=== PATIENT | female | born 1960 | race Asian ===

== ENCOUNTER → 2016-09-29 | Outpatient (CLI) | payer OTHER | LOC: FIMAGING 15:04 | PROVIDERS: ATTEND Orthopaedic Surgery | DX: M75.81 Other shoulder lesions, right shoulder (principal); M75.21 Bicipital tendinitis, right shoulder; M19.011 Primary osteoarthritis, right shoulder ==

== ENCOUNTER 2017-01-31 05:41 | Day surgery (SDC) | payer OTHER ==
[2017-01-30 08:51] LABS: ANION GAP 11 mEq/L (8-16); CALCIUM 9.4 mg/dL (8.5-10.4); CARBON DIOXIDE 24 mEq/l (22-31); CHLORIDE 106 mEq/L (97-110); CREATININE 0.8 mg/dL (0.6-1.0); GLOMERULAR FILTRATION RATE > 60; GLUCOSE 89 mg/dL (70-100); POTASSIUM 4.1 mEq/L (3.5-5.2); SODIUM 141 mEq/L (134-144)
--- NOTE | 2017-01-30 20:57 | PDANEPAE ---
ANE History of Present Illness 56 year old female with R shoulder injury. ANE Past Medical History - Cardiovascular History Hx Hypertension: Yes Hx Arrhythmias: No Hx Chest Pain: No Hx Coronary Artery / Peripheral Vascular Disease: No Hx CHF / Valvular Disease: No Hx Palpitations: No - Pulmonary History Hx COPD: No Hx Asthma/Reactive Airway Disease: No Hx Recent Upper Respiratory Infection: No Hx Oxygen in Use at Home: No Hx Sleep Apnea: No Sleep Apnea Screening Result - Last Documented: Negative - Neurologic History Hx Cerebrovascular Accident: No Hx Seizures: No Hx Dementia: No - Endocrine History Hx Diabetes: Yes Endocrine History Comment: well controlled - Renal History Hx Renal Disorders: No - Liver History Hx Hepatic Disorders: No - Neurological & Psychiatric Hx Hx Neurological and Psychiatric Disorders: No - Cancer History Hx Cancer: Yes Cancer History Comment: cervical tx w/radiation 2000 - Congenital Disorder History Hx Congenital Disorders: No - GI History Hx Gastrointestinal Disorders: Yes Gastrointestinal History Comment: 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 - Other Health History Other Health History: R biceps tendon impingement/R torn rotator cuff - Chronic Pain History Chronic Pain: Yes (R shoulder) - Surgical History Prior Surgeries: hysterectomy (except ovaries)';. L ft sx -2010; ANE Review of Systems Review of Systems: No URI/fever x2 weeks. - Exercise capacity METS (RN): 4 METS - Systems Constitutional: Reports: no symptoms Cardiac: Reports: no symptoms Respiratory: Reports: no symptoms Gastrointestinal: Reports: no symptoms, rectal pain (rectal fissure secondary to radiation) ANE Patient History - Allergies Allergies/Adverse Reactions: aspirin Allergy (Verified 01/29/17 16:42) Other-Enter Comments niacin Allergy (Verified 01/29/17 16:42) Other-Enter Comments Sulfa (Sulfonamide Antibiotics) Allergy (Verified 01/29/17 16:42) Anaphylaxis - Home Medications Home medications: home medication list seen and reviewed Home Medications: Coq-10 01/29/17 [Last Taken Unknown] Fish Oil 1,000 mg Capsule 01/29/17 [Last Taken Unknown] Flonase Nasal [place] 01/29/17 [Last Taken Unknown] Lisinopril 01/29/17 [Last Taken Unknown] Metformin HCl 01/29/17 [Last Taken Unknown] Osphena 01/29/17 [Last Taken Unknown] - NPO status NPO Status: no food or drink >8 hours - Anes Hx Hx Anesthesia Complications (with details): hypoxia during colonoscopy, believed to be due to Fentanyl/Versed - Smoking Hx Smoking Status: Never smoked Marijuana use: No - Alcohol Use Alcohol Use: None - Family Anes Hx Family Anes Hx: none ANE Labs/Vital Signs - Labs Result Diagrams: 01/30/17 08:18 - Vital Signs Vital Signs: reviewed preoperatively; see RN documention for details Height: 153.67 cm Weight: 68.039 kg ANE Physical Exam - Airway Neck exam: FROM Mallampati Score: Class 2 - Pulmonary Pulmonary: clear to auscultation - Cardiovascular Cardiovascular: regular rate and rhythym - ASA Status ASA Status: II ANE Anesthesia Plan Anesthesia Plan: general endotracheal anesthesia Regional Anesthesia: interscalene BP NB Total IV Anesthesia: No
[2017-01-31] MEDS ORDERED: LR 1,000 ML IV ONE (06:12)
[2017-01-31] MEDS ORDERED: LIDOCAINE 1% 2 ML INJ ID PRN (06:12)
[2017-01-31] MEDS ORDERED: BUPIVACAINE 0.5% 30 ML SDV ONE (06:56)
[2017-01-31] MEDS ORDERED: BUPIVACAINE/EPI 0.5% 30 ML SDV ONE (06:56)
[2017-01-31] MEDS ORDERED: BACITRACIN 50,000 UNITS/10 ML SYR IRR ONE (06:57)
[2017-01-31] MEDS ORDERED: POLYMYXIN B SULFATE 500,000 UNIT/10 ML SYR IRR ONE (06:57)
[2017-01-31] MEDS ORDERED: SCOPOLAMINE HYDROBROMIDE 1 MG/3 DAYS PATCH TD ONE (07:06)
[2017-01-31] MEDS ORDERED: MIDAZOLAM 2 MG/2 ML VIAL IVP ONE (07:07)
--- NOTE | 2017-01-31 07:12 | PDHPUP ---
History & Physical Update H&P update statement: This history and physical update is based on an assessment of the patient which was completed after admission or registration (within 24 hours), but prior to the surgery/procedure. H&P update: H&P reviewed & patient examined, no change in patient's condition since H&P completed
[2017-01-31] MEDS ORDERED: PROPOFOL/EMULSION 500 MG/50 ML BOTTLE IV ONE ×2 (07:15→08:44)
[2017-01-31] MEDS ORDERED: LIDOCAINE 2% 5 ML SDV ONE (07:16)
[2017-01-31] MEDS ORDERED: DEXAMETHASONE 4 MG/ML VIAL ONE ×2 (07:16)
[2017-01-31] MEDS ORDERED: ONDANSETRON 4 MG/2 ML VIAL ONE (07:16)
[2017-01-31] MEDS ORDERED: clonIDINE 1 MG/10 ML VIAL EP ONE (07:20)
[2017-01-31] MEDS ORDERED: epHEDrine SULFATE 10 MG/ML SYR ONE (09:26)
[2017-01-31] MEDS ORDERED: PROMETHAZINE HCL 25 MG/ML INJ IVP PRN (09:39)
[2017-01-31] MEDS ORDERED: NALOXONE HCL 0.4 MG/ML INJ IVP PRN (09:39)
[2017-01-31] MEDS ORDERED: fentaNYL 100 MCG/2 ML INJ IVP PRN (09:39)
[2017-01-31] MEDS ORDERED: ACETAMINOPHEN 500 MG TAB PO PRN (09:39)
[2017-01-31] MEDS ORDERED: OXYCODONE/APAP 5/325 TAB PO PRN (09:39)
[2017-01-31] MEDS ORDERED: ALBUTEROL 3 ML DEYVIAL IH PRN (09:39)
--- NOTE | 2017-01-31 10:09 | POSTOPPROG ---
Post Op Note Date of Operation: 01/31/17 Surgeon: Val Feliz [employer] Lieutenant: Cristy Rowe PA-C Anesthesiologist: Dr. Shabazz Anesthesia: GET(General Endotracheal) Pre-op Diagnosis: shoulder impingement Post-op Diagnosis: shoulder impingement Indication: shoulder pain Procedure: right shoulder SAD, DCE, debridement, biceps tenodesis Inf/Abcess present in the surg proc area at time of surgery?: No EBL: Minimal Complications: none
--- NOTE | 2017-01-31 10:10 | SOAPPROG ---
SOAP Progress Note Assessment/Plan: Assessment/Plan: s/p right shoulder SAD, DCE, debridement, biceps tenodesis - stable and doing well - meds per anesthesia - sling; ok for gentle pendulums, no biceps ROM - f/u in 7-10 days, call with issues or concerns - home when PACU criteria met 01/31/17 10:08 Subjective: No pain, feels tired Objective: Vital Signs Temp Pulse Resp BP Pulse Ox 36.1 C 75 12 93/59 L 96 01/31/17 09:44 01/31/17 09:44 01/31/17 09:44 01/31/17 09:44 01/31/17 09:44 Laboratory Results 01/30/17 08:18 01/30/17 01/31/17 02/01/17 05:59 05:59 05:59 Intake Total 1000 Output Total 25 Balance 975 NAD, no distress waking from anesthesia EOMi, MAEx4 incisions CDI ICD10 Worksheet Patient Problems: Problems Problem Status Onset Shoulder pain Acute - ICD10 Problem Qualifiers (1) Shoulder pain Qualifiers: Chronicity: C Laterality: L
[2017-01-31 10:44] VITALS: PULSE 75
[2017-01-31 10:46] VITALS: RESP 18
--- NOTE | 2017-01-31 11:28 | POSTANESTH ---
Post Anesthetic Evaluation Cardiovascular Status: Normal, Stable Respiratory Status: Normal, Stable Level of Consciousness/Mental Status: Can Participate in Eval, Alert and Oriented Pain Control: Adequate, Prn Tx Ordered Nausea/Vomiting Control: Adequate, Prn Tx Ordered Complications Possibly Related to Anesthesia: None Noted (No pain in R shoulder , some tingling in hand.)
[2017-01-31 12:05] VITALS: BP 128/77; O2SAT 92
[2017-01-31 12:17] VITALS: TEMP 98.8
--- NOTE | 2017-01-31 18:37 | GOP ---
[f rep st] OPERATIVE REPORT DATE OF OPERATION: 01/31/2017 SURGEON: Val Feliz MD WINDOWS SECURITY ANALYST: Cristy Rowe PA-C ANESTHESIA: General with interscalene block. PREOPERATIVE DIAGNOSIS: 1. Partial-thickness rotator cuff tear. 2. Biceps tendinitis with superior labrum anterior and posterior tear. 3. Impingement syndrome. 4. Acromioclavicular arthritis, right shoulder. POSTOPERATIVE DIAGNOSIS: 1. Partial-thickness rotator cuff tear. 2. Biceps tendinitis with superior labrum anterior and posterior tear. 3. Impingement syndrome. 4. Acromioclavicular arthritis, right shoulder. PROCEDURE PERFORMED: 1. Arthroscopy. 2. Arthroscopic debridement of superior labrum anterior and posterior tear and partial-thickness ro tator cuff tear. 3. Subacromial decompression. 4. Distal clavicle excision. 5. Biceps tenodesis, right shoulder. FINDINGS: A diagnostic arthroscopy of the right shoulder was performed with the following findings. The patient had normal glenohumeral articular cartilage. There was no significant chondral damage . There was no chondromalacia. The labrum was inspected, and it was noted to be normal anteriorly, inferiorly, and posteriorly, but there was a large SLAP tear extending from the 10 o'clock to the 2 o'clock position. There was instability of the biceps anchor with severe damage of the biceps anch or. The biceps tendon was released for later tenodesis. The SLAP tear was debrided. The rotator c uff was then inspected, and the patient was noted to have a partial-thickness tear of the anterior f ibers of the supraspinatus. This extended from the rotator interval posteriorly for approximately a centimeter. This was less than 25% of the thickness of the rotator cuff. The articular surface of the partial thickness rotator cuff tear was debrided with the shaver. The remainder of the rotator cuff was intact, including the subscapularis. The scope was then placed in the subacromial space, and the patient had severe subacromial bursitis. The subacromial bursa was debrided. The rotator c uff was inspected from the bursal side and noted to be intact. The patient did have an anterolatera l spur on the undersurface of the acromion. Approximately 8 mm of the anterolateral acromion was re moved with a bur. This decompressed the subacromial space nicely. The patient also had a large spu r on the inferior aspect of the distal clavicle. The distal 1 cm of the clavicle was excised. Augustina rangel, the biceps tendon was retrieved from the bicipital groove, and a drill hole was placed at the b ase of the bicipital groove. The tendon was inserted and fixated with a 7 x 23 bioabsorbable tenode sis screw. Excellent fixation of the biceps tendon was obtained. ESTIMATED BLOOD LOSS: Minimal. DESCRIPTION OF PROCEDURE: The patient was taken to the operating room and placed in supine position on the operating table. Following induction of adequate general and interscalene anesthesia, she w as turned to the lateral decubitus position, and the shoulder and arm were prepped and draped in the usual sterile manner. The patient received 1 g of IV Ancef. The arthroscope was introduced throug h a posterior portal, and the instrumentation through an anterior portal. A diagnostic arthroscopy was performed with the above-noted findings. Our attention was turned first to the intraarticular p athology. The SLAP tear was debrided. The biceps tendon was released with the basket. Once this w as completed, the scope was placed in the subacromial space, and a lateral working portal was create d. The instruments were passed through the lateral portal at this point. The undersurface of the a cromion was cleared; then the bur was inserted, and a subacromial decompression was performed. The rasp was used to smooth the undersurface of the acromion. The instrumentation was then removed from the shoulder, and a 3 cm incision was made along the distal end of the clavicle. Incision was vale ied down through subcutaneous tissues to the AC joint. The fascia overlying the AC joint was split in a T-fashion and retracted, and the distal 1 cm of the clavicle was excised with a saw. The fasci a was then repaired using 0 Vicryl followed by 2-0 Vicryl in the subcutaneous tissue and 4-0 Vicryl in the skin. The portals were closed using 4-0 nylon. The patient was turned to the beach-chair po sition, and then a 4 cm incision was made along the bicipital groove. Incision was carried down thr ough the subcutaneous tissue to the deltoid. The deltoid was split in line with the incision and re tracted with a [place] retractor. The biceps tendon was located in the bicipital groove and retrieve d. It was prepared for tenodesis. A fiber loop was utilized. Once the tendon was prepared, a dril l hole was placed at the base of the bicipital groove and the tendon was inserted and fixated with a 7 x 23 [employer] Tenodesis screw. Excellent fixation was obtained. The incision was irrigated o ut and injected with 10 cc of 0.5% Marcaine with epinephrine. It was closed using 2-0 Vicryl follow ed by 4-0 Vicryl in a running subcuticular fashion. Steri-Strips and sterile dressings were applied . The patient tolerated the procedure well, and there were no complications. Estimated blood loss minimal. Final sponge, needle counts were correct. The patient was transported to the [facility] in good condition. /[id number]/MODL
== END 2017-01-31 11:56 | disposition home or self-care (01) ==
LOC: FSGY 05:41
PROVIDERS: ATTEND Orthopaedic Surgery
DX: M75.111 Incomplete rotator cuff tear or rupture of right shoulder, not specified as traumatic (principal); M75.21 Bicipital tendinitis, right shoulder; M75.41 Impingement syndrome of right shoulder; S43.431D Superior glenoid labrum lesion of right shoulder, subsequent encounter; M75.51 Bursitis of right shoulder; M19.011 Primary osteoarthritis, right shoulder; M25.511 Pain in right shoulder; E11.9 Type 2 diabetes mellitus without complications; E78.5 Hyperlipidemia, unspecified; I10 Essential (primary) hypertension
CPT/HCPCS: C1713; J0171; J0690; J0735; J1100; J2250; J2405; J2704

== ENCOUNTER → 2017-03-21 | Outpatient (CLI) | payer OTHER | LOC: FIMAGING 14:39 | PROVIDERS: ATTEND Family Medicine | DX: Z12.31 Encounter for screening mammogram for malignant neoplasm of breast (principal) | CPT/HCPCS: G0202 ==

== ENCOUNTER → 2018-04-10 | Outpatient (CLI) | payer OTHER | LOC: FIMAGING 09:13 | PROVIDERS: ATTEND Family Medicine | DX: Z12.31 Encounter for screening mammogram for malignant neoplasm of breast (principal) ==